=== PATIENT | male | born 1930 | race Caucasian/White ===

== ENCOUNTER 2018-10-04 22:12 | Inpatient (IN) | payer OTHER ==
[~2018-10-04] VITALS: Ht 177.8 cm; Wt 94.1 kg
[~2018-10-04 22:12] MED LIST: AMLODIPINE BESYL5 M1 PO; CLINDAMYCIN HC300 MG PO; ENALAPRIL/HCTZ1 TAB PO; GLIPIZIDE10 MG PO; LAC PO; LEVAQUIN500 MG PO; LEVAQUIN750 MG PO; LOPRESSOR100 MG PO; METFORMIN HCL1000 MG PO; METOPROLOL TART50 MG PO; PLA75 PO; PRILOSEC20 MG PO; SIMVASTATIN20 M1 PO; SPIRONOLACTONE25 MG PO
[2018-10-04 23:31] LABS: BASOPHIL % 0.1 % (0-2); PLATELET COUNT 81 x10^3mcL (130-400); RED CELL DISTRIBUTION WIDTH 15.4 % (11.5-14.5)
[2018-10-04 23:47] LABS: CALCIUM 9.6 mg/dL (8.5-10.1); CARBON DIOXIDE 21.3 mmol/L (21-32); CHLORIDE SERUM 94 mmol/L (98-107); CREATININE SERUM 2.8 mg/dL (0.7-1.3); GLUCOSE SERUM 152 mg/dL (74-106); POTASSIUM SERUM 4.8 mmol/L (3.5-5.1); SODIUM SERUM 127 mmol/L (136-145)
[2018-10-04 23:52] LABS: ALBUMIN 2.4 g/dL (3.4-5.0); ALKALINE PHOSPHATASE 125 U/L (46-116); ALT/SGPT 27 U/L (16-63); AST/SGOT 30 U/L (15-37); BILIRUBIN TOTAL 0.7 mg/dL (0.20-1.00); TOTAL PROTEIN, SERUM 5.9 g/dL (6.4-8.2)
[2018-10-05 01:24] LABS: UA SPECIFIC GRAVITY 1.015 (1.005-1.035); microscopic required? YES; urine erythrocyte TRACE (NEGATIVE)
[2018-10-05] MEDS ORDERED: SIMVASTATIN10 M1 PO (02:10)
[2018-10-05] MEDS ORDERED: LASIX20 MG PO (02:11)
[2018-10-05 03:45] VITALS: BP 108/59
[2018-10-05 05:36] VITALS: BP 131/65
[2018-10-05 08:45] VITALS: BP 108/51
[2018-10-05 11:47] VITALS: BP 110/61
[2018-10-05 16:50] VITALS: BP 123/61
[2018-10-05 21:26] VITALS: BP 125/69
[2018-10-06 06:04] VITALS: BP 119/65
[2018-10-06 07:10] LABS: BASOPHIL % 0.2 % (0-2)
[2018-10-06 07:12] LABS: PLATELET COUNT 102 x10^3mcL (130-400); RED CELL DISTRIBUTION WIDTH 15.5 % (11.5-14.5)
[2018-10-06 07:22] LABS: CALCIUM 9.4 mg/dL (8.5-10.1); CARBON DIOXIDE 22.5 mmol/L (21-32); CHLORIDE SERUM 94 mmol/L (98-107); CREATININE SERUM 2.1 mg/dL (0.7-1.3); GLUCOSE SERUM 92 mg/dL (74-106); POTASSIUM SERUM 4.1 mmol/L (3.5-5.1); SODIUM SERUM 127 mmol/L (136-145)
[2018-10-06 09:39] VITALS: BP 114/60
[2018-10-06 13:49] VITALS: BP 102/60
[2018-10-06 17:04] VITALS: BP 116/53
[2018-10-06 21:29] VITALS: BP 99/57
[2018-10-07 06:14] VITALS: BP 103/50
[2018-10-07 06:31] LABS: BASOPHIL % 0.4 % (0-2)
[2018-10-07 06:40] LABS: CALCIUM 9.2 mg/dL (8.5-10.1); CARBON DIOXIDE 23.7 mmol/L (21-32); CHLORIDE SERUM 94 mmol/L (98-107); GLUCOSE SERUM 107 mg/dL (74-106); POTASSIUM SERUM 4.9 mmol/L (3.5-5.1); SODIUM SERUM 126 mmol/L (136-145)
[2018-10-07 06:41] LABS: PLATELET COUNT 88 x10^3mcL (130-400); RED CELL DISTRIBUTION WIDTH 15.7 % (11.5-14.5)
[2018-10-07 07:56] VITALS: BP 109/49
[2018-10-07 14:15] VITALS: BP 104/58
[2018-10-07 17:17] VITALS: BP 112/69; BP 156/80
[2018-10-07 20:43] VITALS: BP 100/56
[2018-10-08 05:17] VITALS: BP 107/47
[2018-10-08 06:49] LABS: BASOPHIL % 0.3 % (0-2)
[2018-10-08 06:55] LABS: PLATELET COUNT 86 x10^3mcL (130-400); RED CELL DISTRIBUTION WIDTH 15.1 % (11.5-14.5)
[2018-10-08 06:57] LABS: CALCIUM 9.8 mg/dL (8.5-10.1); CARBON DIOXIDE 23.1 mmol/L (21-32); CHLORIDE SERUM 94 mmol/L (98-107); CREATININE SERUM 2.1 mg/dL (0.7-1.3); GLUCOSE SERUM 144 mg/dL (74-106); SODIUM SERUM 126 mmol/L (136-145)
[2018-10-08 07:48] VITALS: Ht 177.8 cm; Wt 94.1 kg
[2018-10-08 10:55] VITALS: BP 104/53
[2018-10-08 19:22] VITALS: BP 100/62
[2018-10-08 19:31] VITALS: BP 100/62
[2018-10-08 21:05] VITALS: BP 92/36
== END 2018-10-08 21:36 | disposition short-term general hospital (02) | DRG 640 ==
LOC: ED 22:12 → DU 10-05 01:41
PROVIDERS: Emergency Medicine; Internal Medicine Nephrology; ADMIT Internal Medicine
DX: E86.0 Dehydration (principal); N17.0 Acute kidney failure with tubular necrosis; N39.0 Urinary tract infection, site not specified; N17.9 Acute kidney failure, unspecified; I50.42 Chronic combined systolic (congestive) and diastolic (congestive) heart failure; I95.9 Hypotension, unspecified; E87.1 Hypo-osmolality and hyponatremia; E11.22 Type 2 diabetes mellitus with diabetic chronic kidney disease; N18.9 Chronic kidney disease, unspecified; M79.662 Pain in left lower leg; I27.20 Pulmonary hypertension, unspecified; D69.6 Thrombocytopenia, unspecified; I25.10 Atherosclerotic heart disease of native coronary artery without angina pectoris; I25.2 Old myocardial infarction; Z68.29 Body mass index [BMI] 29.0-29.9, adult; Z95.0 Presence of cardiac pacemaker; Z95.1 Presence of aortocoronary bypass graft; Z95.5 Presence of coronary angioplasty implant and graft; Z79.84 Long term (current) use of oral hypoglycemic drugs; Z22.322 Carrier or suspected carrier of Methicillin resistant Staphylococcus aureus
CPT/HCPCS: 82962; 83880; 97110-GP; 97116-GP; J0696; J1956; J7030; J7040; P9047; Q0092

== ENCOUNTER 2018-10-22 04:47 | Inpatient (IN) | payer OTHER ==
[~2018-10-22] VITALS: Ht 170.2 cm; Wt 89.0 kg
[~2018-10-22 04:47] MED LIST changes: +LASIX20 MG PO; +SIMVASTATIN10 M1 PO
[2018-10-22 04:54] VITALS: Ht 170.2 cm; Wt 89.0 kg
[2018-10-22 06:17] LABS: ALKALINE PHOSPHATASE 144 U/L (46-116); ALT/SGPT 28 U/L (16-63); AST/SGOT 40 U/L (15-37); BILIRUBIN TOTAL 1.36 mg/dL (0.20-1.00); CALCIUM 10.2 mg/dL (8.5-10.1); CARBON DIOXIDE 23.4 mmol/L (21-32); CHLORIDE SERUM 103 mmol/L (98-107); CREATININE SERUM 2.8 mg/dL (0.7-1.3); GLUCOSE SERUM 124 mg/dL (74-106); POTASSIUM SERUM 4.7 mmol/L (3.5-5.1); SODIUM SERUM 135 mmol/L (136-145)
[2018-10-22 06:21] LABS: microscopic required? YES; urine erythrocyte 2+ (NEGATIVE)
[2018-10-22 06:25] LABS: CK-MB 1.5 ng/mL (0-3.6)
[2018-10-22 06:28] LABS: BASOPHIL % 0.3 % (0-2)
[2018-10-22 06:37] LABS: ALBUMIN 2.1 g/dL (3.4-5.0); TOTAL PROTEIN, SERUM 5.4 g/dL (6.4-8.2)
[2018-10-22 07:07] LABS: PLATELET COUNT 65 x10^3mcL (130-400); RED CELL DISTRIBUTION WIDTH 17.3 % (11.5-14.5)
[2018-10-22 07:13] LABS: AMYLASE 39 U/L (25-115); CALCIUM 10.5 mg/dL (8.5-10.1); LIPASE 138 IU/L (73-393); T4(THYROXINE) 8.8 ug/dL (4.7-13.3)
[2018-10-22 07:15] LABS: CHOLESTEROL 93 mg/dL (<200); HDL CHOLESTEROL 14 mg/dL (40-60)
[2018-10-22] MEDS ORDERED: ASPIR 8181 MG PO (10:08)
[2018-10-22] MEDS ORDERED: ELIQUIS (10:08)
[2018-10-22 13:16] LABS: CHOLESTEROL/HDL RATIO 6.1
[2018-10-22 13:32] VITALS: BP 109/39
[2018-10-22 15:28] VITALS: BP 80/54
[2018-10-22 19:30] VITALS: BP 118/70
[2018-10-22 23:15] VITALS: BP 106/53
[2018-10-23] VITALS (7 sets, daily range): BP systolic 87–107; BP diastolic 47–67
[2018-10-23 05:39] LABS: CARBON DIOXIDE 22.4 mmol/L (21-32); CHLORIDE SERUM 105 mmol/L (98-107); CREATININE SERUM 2.9 mg/dL (0.7-1.3); GLUCOSE SERUM 120 mg/dL (74-106); POTASSIUM SERUM 4.9 mmol/L (3.5-5.1); SODIUM SERUM 137 mmol/L (136-145)
[2018-10-23 05:41] LABS: BASOPHIL % 0.3 % (0-2); PLATELET COUNT 58 x10^3mcL (130-400); RED CELL DISTRIBUTION WIDTH 17.6 % (11.5-14.5)
[2018-10-24] VITALS (9 sets, daily range): BP systolic 84–111; BP diastolic 43–70
[2018-10-24 00:07] LABS: AMPHETAMINE QUAL UR NONE DETECTED (See below)
[2018-10-24 05:25] LABS: BASOPHIL % 0.4 % (0-2)
[2018-10-24 05:26] LABS: PLATELET COUNT 58 x10^3mcL (130-400)
[2018-10-24 05:42] LABS: CALCIUM 10.5 mg/dL (8.5-10.1); CARBON DIOXIDE 21.9 mmol/L (21-32); CHLORIDE SERUM 105 mmol/L (98-107); GLUCOSE SERUM 117 mg/dL (74-106); POTASSIUM SERUM 4.8 mmol/L (3.5-5.1); SODIUM SERUM 135 mmol/L (136-145)
== END 2018-10-24 21:38 | disposition short-term general hospital (02) | DRG 871 ==
LOC: ED 04:47 → IC 09:38 → ED 09:38 → DU 09:38 → IC 13:20
PROVIDERS: Emergency Medicine; ADMIT Internal Medicine
DX: A41.9 Sepsis, unspecified organism (principal); N17.0 Acute kidney failure with tubular necrosis; I21.A1 Myocardial infarction type 2; I24.9 Acute ischemic heart disease, unspecified; N17.9 Acute kidney failure, unspecified; E87.1 Hypo-osmolality and hyponatremia; I47.2 Ventricular tachycardia; R65.20 Severe sepsis without septic shock; I48.91 Unspecified atrial fibrillation; I95.9 Hypotension, unspecified; K81.9 Cholecystitis, unspecified; I12.9 Hypertensive chronic kidney disease with stage 1 through stage 4 chronic kidney disease, or unspecified chronic kidney disease; N18.9 Chronic kidney disease, unspecified; I25.5 Ischemic cardiomyopathy; I25.10 Atherosclerotic heart disease of native coronary artery without angina pectoris; R73.03 Prediabetes; Z95.2 Presence of prosthetic heart valve; Z68.29 Body mass index [BMI] 29.0-29.9, adult; Z95.1 Presence of aortocoronary bypass graft; Z95.810 Presence of automatic (implantable) cardiac defibrillator
CPT/HCPCS: 76770; 78226; 82962; 83880; A9537; G0480; J0282; J1160; J1956; J3490; J7040; Q0092